=== PATIENT | female | born 1990 ===

== ENCOUNTER 2018-05-28 00:25 | Emergency (ER) | payer SELFPAY ==
[2018-05-28 00:39] VITALS: BP 121/68; PULSE 88; RESP 18; TEMP 98; O2SAT 99
--- NOTE | 2018-05-28 03:54 | ED PDOC ---
HPI: Female Pain Time Seen by Provider: 05/28/18 00:40 Chief Complaint (Nursing): Female Genitourinary Chief Complaint (Provider): Pelvic Pain History Per: Patient History/Exam Limitations: no limitations Onset/Duration Of Symptoms: Hrs Associated Symptoms: Urinary Symptoms. denies: Fever, Chills, Back Pain Additional Complaint(s): Marga Ventura is a 28 year old female with no past medical history who is presenting to the ED with complaints of pelvic pain associated with pressure, dysuria, frequency, and hematuria, onset earlier tonight. Patient denies any fever, chills, or back pain. She offers no other medical complaints at this time. PMD: Davide White Past Medical History Reviewed: Historical Data, Nursing Documentation, Vital Signs Vital Signs: Last Vital Signs Temp 98 F 05/28/18 00:37 Pulse 88 05/28/18 00:37 Resp 18 05/28/18 00:37 BP 121/68 05/28/18 00:37 Pulse Ox 99 05/28/18 00:37 - Medical History PMH: No Chronic Diseases - Surgical History Surgical History: No Surg Hx - Family History Family History: States: Unknown Family Hx - Social History Current smoker - smoking cessation education provided: No Alcohol: None Drugs: Denies - Home Medications Home Medications: Ambulatory Orders Medication Instructions Recorded Nitrofurantoin Macrocrystals 100 mg PO BID 5 Days cap 05/28/18 [Macrobid] - Allergies Allergies/Adverse Reactions: Allergies Allergy/AdvReac Type Severity Reaction Status Date / Time No Known Allergies Allergy Verified 05/28/18 00:37 Review of Systems ROS Statement: Except As Marked, All Systems Reviewed And Found Negative Constitutional: Negative for: Fever, Chills Genitourinary Female: Positive for: Dysuria, Frequency, Hematuria, Pelvic Pain Musculoskeletal: Negative for: Back Pain Physical Exam - Reviewed Nursing Documentation Reviewed: Yes Vital Signs Reviewed: Yes - Physical Exam Appears: Positive for: Non-toxic, No Acute Distress Head Exam: Positive for: ATRAUMATIC, NORMAL INSPECTION, NORMOCEPHALIC Skin: Positive for: Normal Color, Warm, DRY Eye Exam: Positive for: EOMI, Normal appearance, PERRL ENT: Positive for: Normal ENT Inspection Neck: Positive for: Normal, Painless ROM Cardiovascular/Chest: Positive for: Regular Rate, Rhythm. Negative for: Murmur Respiratory: Positive for: Normal Breath Sounds Gastrointestinal/Abdominal: Positive for: Normal Exam, Soft. Negative for: Tenderness Pelvic Exam: Positive for: Other (suprapubic tenderness to palpation) Back: Positive for: Normal Inspection. Negative for: L CVA Tenderness, R CVA Tenderness, Vertebral Tenderness Extremity: Positive for: Normal ROM. Negative for: Deformity, Swelling Neurologic/Psych: Positive for: Alert, Oriented. Negative for: Motor/Sensory Deficits - ECG O2 Sat by Pulse Oximetry: 99 (RA) Pulse Ox Interpretation: Normal Medical Decision Making Medical Decision Making: Time: 1:03 --28 year old female presenting with urinary symptoms --Do not suspect pyelonephritis or kidney stones at this time. --patient is well appearing with good vitals. --Will treat her for urinary tract infection. 1:50 Upon provider reevaluation patient is feeling better, is medically stable, and requires no further treatment in the ED at this time. Patient will be discharged. Counseling was provided and all questions were answered regarding diagnosis and need for follow up with PMD. There is agreement to discharge plan. Return if symptoms persist or worsen. Scribe Attestation: Documented by, Katya Ghosh acting as a scribe for Colt Zepeda MD. Provider Scribe Attestation: All medical record entries made by the Scribe were at my direction and personally dictated by me. I have reviewed the chart and agree that the record accurately reflects my personal performance of the history, physical exam, medical decision making, and the department course for this patient. I have also personally directed, reviewed, and agree with the discharge instructions and disposition. Disposition - Clinical Impression Clinical Impression: Urinary tract infection - Disposition Disposition Time: 01:50 Condition: STABLE Prescriptions: Nitrofurantoin Macrocrystals [Macrobid] 100 mg PO BID 5 Days cap Instructions: Urinary Tract Infection, Adult (DC) Forms: [facility] (Bel[place]ian) Print Language: MOLDOVAN
== END 2018-05-28 01:50 | disposition home or self-care (01) ==
LOC: H.ER 00:25
DX: N39.0 Urinary tract infection, site not specified (principal)